=== PATIENT | female | born 1985 | race Caucasian/White ===

== ENCOUNTER 2018-03-25 22:55 | Emergency (ER) | payer OTHER ==
[~2018-03-25] VITALS: Ht 167.6 cm; Wt 72.6 kg
[2018-03-25 22:58] VITALS: BP 136/80
[2018-03-26] MEDS ORDERED: KETOROLAC 30 MG/ML VIAL IVP ONE
[2018-03-26] MEDS ORDERED: LORazepam 2 MG/ML VIAL IVP ONE
[2018-03-26] MEDS ORDERED: NACL 0.9% 1,000 ML IV ONE
[2018-03-26 00:43] LABS: BASOPHILS # (AUTO) 0.1 K/uL (0.00-0.22); BASOPHILS % (AUTO) 0.5 % (0.0-2.0); EOSINOPHILS # (AUTO) 0.4 K/uL (0-0.4); HEMOGLOBIN 13.2 g/dL (12.0-16.0); LYMPHOCYTES # (AUTO) 2.4 K/uL (2.5-16.5); MEAN CORPUSCULAR HEMOGLOBIN 30 pg (27-31); MEAN CORPUSCULAR HGB CONC 33 g/dL (33-37); MEAN CORPUSCULAR VOLUME 90.9 fL (80-94); MONOCYTES # (AUTO) 1.1 K/uL (0.8-1.0); NEUTROPHILS # (AUTO) 8.5 K/uL (1.8-7.7); NEUTROPHILS % (AUTO) 68.5 % (42.2-75.2); PLATELET COUNT (AUTO) 304 K/uL (140-450); WHITE BLOOD COUNT (AUTO) 12.5 K/uL (4.8-10.8)
[2018-03-26 01:08] LABS: ANION GAP 14.2 (8-16); CARBON DIOXIDE 27.3 mmol/L (21-32); CREATININE 0.7 mg/dL (0.6-1.3); POTASSIUM 3.5 mmol/L (3.5-5.1)
[2018-03-26] MEDS ORDERED: MORPHINE SULFATE 4 MG/ML SYR IVP ONE (01:20)
[2018-03-26 01:25] LABS: ALBUMIN 3.8 g/dL (3.4-5.0); TOTAL BILIRUBIN 0.3 mg/dL (0.0-1.0)
[2018-03-26 02:03] VITALS: BP 128/66
== END 2018-03-26 02:03 | disposition home or self-care (01) ==
LOC: MED 22:55
DX: S00.83XA Contusion of other part of head, initial encounter (principal); X58.XXXA Exposure to other specified factors, initial encounter; Y93.89 Activity, other specified; Y92.89 Other specified places as the place of occurrence of the external cause; Y99.8 Other external cause status
CPT/HCPCS: 36415; 70486; 80053; 85025; 93005; 96374; 96375; 99284; J1885; J2060; J2270; J7030

== ENCOUNTER 2020-09-11 21:54 | Emergency (ER) | payer MEDICAID, OTHER ==
[~2020-09-11] VITALS: Ht 167.6 cm; Wt 65.8 kg
[2020-09-11 21:54] VITALS: BP 149/100
[2020-09-11 23:12] VITALS: BP 149/100
== END 2020-09-11 23:12 | disposition home or self-care (01) ==
LOC: MED 21:54
DX: R07.89 Other chest pain (principal); M54.5 Low back pain; F41.9 Anxiety disorder, unspecified; V89.2XXA Person injured in unspecified motor-vehicle accident, traffic, initial encounter; Y93.89 Activity, other specified; Y92.89 Other specified places as the place of occurrence of the external cause; Y99.8 Other external cause status
CPT/HCPCS: 71045; 72100; 93005; 99284

== ENCOUNTER 2021-12-08 14:58 | Emergency (ER) | payer MEDICAID ==
[~2021-12-08] VITALS: Ht 160 cm; Wt 61.2 kg
[2021-12-08 15:07] VITALS: BP 157/93
--- NOTE | 2021-12-08 15:13 | NUR ---
36 Y/O FEMALE BIB SELF C/O THROAT DISCOMFORTXTODAY. STATES THAT THEY FEEL LIKE "SOMETHING IS STUCK DOWN THERE" DENIES HX CHOKING, COUGH, FEVER, DENIES ANY MEDICATION FOR PAIN. SPEAKING IN FULL SENTENCES, DENIES ANY DIFFICULTY SWALLOWING NKA PMH: HX PULMONARY EMBOLISM
--- NOTE | 2021-12-08 15:36 | NUR ---
ZACK HUDSON AT BEDSIDE
[2021-12-08] MEDS ORDERED: LORazepam 1 MG TAB PO ONE (15:50)
--- NOTE | 2021-12-08 16:00 | NUR ---
XRAY AT BEDSIDE
--- NOTE | 2021-12-08 17:11 | NUR ---
ZACK HUDSON AT BEDSIDE FOR REEVAL
[2021-12-08] MEDS ORDERED: LORA-476 PO (17:26)
[2021-12-08 17:40] VITALS: BP 121/78
--- NOTE | 2021-12-08 17:41 | NUR ---
Patient discharged with v/s stable. Written and verbal after care instructions ABOUT ANXIETY given and explained. Patient alert, oriented and verbalized understanding of instructions. Ambulatory with steady gait. All questions addressed prior to discharge. ID band removed. Patient advised to follow up with PMD. Rx of ATIVAN given. Patient educated on indication of medication including possible reaction and side effects. Opportunity to ask questions provided and answered.
== END 2021-12-08 17:40 | disposition home or self-care (01) ==
LOC: MED 14:58
DX: J02.9 Acute pharyngitis, unspecified (principal); F41.9 Anxiety disorder, unspecified
CPT/HCPCS: 36415; 71045; 81025; 85379; 93005; 99285